=== PATIENT | female | born 1980 | race Caucasian/White ===

== ENCOUNTER 2016-04-04 06:47 | Emergency (ER) | payer BC ==
[2016-04-04] MEDS ORDERED: KETOROLAC 30 MG/ML VIAL ONE (08:37)
[2016-04-04] MEDS ORDERED: DIPHENHYDRAMINE 50 MG/ML VIAL ONE (10:37)
[2016-04-04] MEDS ORDERED: METOCLOPRAMIDE 10 MG/2 ML VIAL ONE (10:37)
== END 2016-04-04 11:17 | disposition home or self-care (01) ==
LOC: ER 06:47
DX: N10 Acute pyelonephritis (principal)
CPT/HCPCS: 36415; 71010; 80053; 81001; 83605; 85025; 87040; 87077; 87088; 87186; 87804; 87880; 96361; 96374; 96375